=== PATIENT | male | born 1990 | race Hispanic/Latino ===

== ENCOUNTER 2019-09-21 19:17 | Emergency (ER) | payer OTHER ==
[2019-09-21] MEDS ORDERED: FLUORESCEIN SODIUM 1 STRIP STRIP ONE (19:39)
== END 2019-09-21 20:27 | disposition home or self-care (01) ==
LOC: EDH 19:17
DX: H10.9 Unspecified conjunctivitis (principal)

== ENCOUNTER 2024-08-16 00:26 | Emergency (ER) | payer SELFPAY ==
[~2024-08-16] VITALS: Ht 165.1 cm; Wt 78.9 kg
[2024-08-16 00:46] LABS: RAPID GROUP A STREP negative (NEGATIVE)
[2024-08-16 00:50] LABS: SARS-CoV-2, RNA, NAAT NEGATIVE SARS CoV-2 (NEGATIVE)
[2024-08-16 00:55] LABS: INFLUENZA TYPE A Negative For Type A (NEGATIVE); INFLUENZA TYPE B Negative For Type B (NEGATIVE)
[2024-08-16 01:10] VITALS: BP 137/89; PULSE 98; RESP 18; TEMP 98.5; O2SAT 100
[2024-08-16] MEDS ORDERED: AZIT250T9 PO (01:29)
[2024-08-16] MEDS ORDERED: METH4TAB3 PO (01:29)
== END 2024-08-16 01:48 | disposition home or self-care (01) ==
LOC: EDH 00:26
DX: J02.9 Acute pharyngitis, unspecified (principal); Z20.822 Contact with and (suspected) exposure to COVID-19
CPT/HCPCS: 87635; 87804; 87880